=== PATIENT | male | born 1975 | race Caucasian/White ===

== ENCOUNTER → 2016-05-18 | Outpatient (CLI) | payer OTHER ==
--- NOTE | 2016-05-18 11:33 | US ---
EXAMINATION TYPE: US abdomen complete DATE OF EXAM: 05/18/2016 7:24 AM COMPARISON: CT in pacs CLINICAL HISTORY: Intermittent RUQ/RLQ pain x 3 months, occasional N/V. EXAM MEASUREMENTS: Liver Length: 17.1cm Gallbladder Wall: 0.3cm CBD: 0.3cm Spleen: 10.4cm Right Kidney: 10.2 x 4.7 x 5.6cm Left Kidney: 10.7 x 4.8 x 5.4cm TECHNOLOGIST IMPRESSION: Pancreas: visualized portions wnl, body and tail obscured by overlying bowel gas Liver: measures in upper limits of normal at 17.1cm, otherwise appears wnl Gallbladder: wnl Evidence for sonographic Menezes's sign: yes CBD: visualized portions wnl, limited by overlying bowel gas Spleen: visualized portions wnl, limited by rib shadowing Right Kidney: wnl Left Kidney: visualized portions wnl, limited by rib shadowing Upper IVC: wnl Abd Aorta: visualized portions wnl, distal portion obscured by overlying bowel gas The liver is homogenous. The intrahepatic portion of the IVC and proximal abdominal aorta are within normal limits. There is no evidence of cholelithiasis. Common bile duct is unremarkable. The visu alized portions of the pancreas are homogenous. The spleen is unremarkable. Kidneys are symmetric a nd free of hydronephrosis. No renal lesions are seen. IMPRESSION: There are some limitations to the exam. No abnormalities evident. There is a positive son ographic Menezes's sign however. Normal Values: Liver Length: < 16cm wnl, 17-18cm upper limits, >18cm enlarged Spleen Length = < 13cm Renal Length = 9 - 12cm GB Wall: < 0.3cm CBD: < 0.6cm or < 1.0cm post cholecystectomy
== END | disposition home or self-care (01) ==
LOC: RADUSWWP 06:53
PROVIDERS: ATTEND Internal Medicine
DX: R94.8 Abnormal results of function studies of other organs and systems (principal); R10.11 Right upper quadrant pain
CPT/HCPCS: 76700

== ENCOUNTER → 2017-02-20 | Outpatient (CLI) | payer OTHER ==
--- NOTE | 2017-02-20 19:15 | US ---
EXAMINATION TYPE: US venous doppler duplex LE RT DATE OF EXAM: 02/20/2017 5:36 PM COMPARISON: NONE CLINICAL HISTORY: I80.9 Phlebitis R calf. Right calf burning and pain SIDE PERFORMED: Right TECHNIQUE: The lower extremity deep venous system is examined utilizing real time linear array sonog dorys with graded compression, doppler sonography and color-flow sonography. VESSELS IMAGED: External Iliac Vein (EIV) Common Femoral Vein Deep Femoral Vein Greater Saphenous Vein * Femoral Vein Popliteal Vein Small Saphenous Vein * Proximal Calf Veins (* superficial vessels) Grayscale, color doppler, spectral doppler imaging performed of the deep veins of the lower extremiti es. There is normal flow, compressibility, vascular waveforms. IMPRESSION: NO EVIDENCE OF DEEP VENOUS THROMBOSIS, RIGHT LOWER EXTREMITY.
== END | disposition home or self-care (01) ==
LOC: RADUSWWP 17:04
PROVIDERS: ATTEND Orthopaedic Surgery
DX: I80.9 Phlebitis and thrombophlebitis of unspecified site (principal)

== ENCOUNTER 2022-09-29 20:00 | Emergency (ER) | payer OTHER ==
--- NOTE | 2022-09-29 20:23 | ED ---
Extremity Problem HPI - General Chief complaint: Extremity Problem,Nontraumatic Stated complaint: LT ANKLE SWELLING-PAIN Time Seen by Provider: 09/29/22 20:11 Source: patient Mode of arrival: wheelchair Limitations: no limitations - History of Present Illness Initial comments: Patient is a 46-year-old male presenting with chief complaint of left ankle pain. States that the pain as a burning sensation. Patient injured the ankle 6 years ago, no recent injury. States that he has been working long shifts on his feet. No redness, swelling, or discoloration. No fevers or chills. - Related Data Home Medications Medication Instructions Recorded Confirmed busPIRone HCL 15 mg PO DAILY@1800 07/12/16 01/31/17 Omeprazole 20 mg PO DAILY@1800 01/31/17 01/31/17 Previous Rx's Medication Instructions Recorded Acetaminophen-Codeine 300-30mg 1 tab PO Q4H PRN #20 tablet 01/31/17 [Tylenol #3] Ibuprofen [Motrin] 600 mg PO Q8HR PRN #30 tab 01/31/17 Indomethacin [Indocin] 50 mg PO TID 7 Days #21 capsule 09/29/22 Allergies Allergy/AdvReac Type Severity Reaction Status Date / Time red (food color) AdvReac Diarrhea Verified 09/29/22 20:07 Review of Systems ROS Statement: Those systems with pertinent positive or pertinent negative responses have been documented in the HPI. ROS Other: All systems not noted in ROS Statement are negative. Past Medical History Past Medical History: Hypertension, Seizure Disorder Additional Past Medical History / Comment(s): Anxiety History of Any Multi-Drug Resistant Organisms: None Reported Additional Past Surgical History / Comment(s): jaw Past Anesthesia/Blood Transfusion Reactions: No Reported Reaction Past Psychological History: ADD/ADHD, Anxiety Past Alcohol Use History: Occasional Past Drug Use History: Marijuana - Past Family History Father Family Medical History: AFIB Mother Family Medical History: Asthma General Exam Limitations: no limitations General appearance: alert, in no apparent distress Head exam: Present: atraumatic, normocephalic, normal inspection Eye exam: Present: normal appearance, EOMI. Absent: scleral icterus, periorbital swelling Neck exam: Present: normal inspection, full ROM Left Ankle exam: Present: full ROM, tenderness. Absent: swelling, ecchymosis, erythema Neurovascular tendon exam: Present: no vascular compromise Neurological exam: Present: alert, oriented X3, CN II-XII intact Psychiatric exam: Present: normal affect, normal mood Skin exam: Present: warm, dry, intact, normal color. Absent: rash Course Vital Signs 09/29/22 09/29/22 20:05 21:24 Temperature 97.5 F L 98.4 F Pulse Rate 81 76 Respiratory 20 16 Rate Blood Pressure 148/87 152/80 O2 Sat by Pulse 99 98 Oximetry Medical Decision Making - Medical Decision Making Was pt. sent in by a medical professional or institution (, PA, FOOT DOCTOR, urgent care, hospital, or fdc...) When possible be specific @ -No Did you speak to anyone other than the patient for history (EMS, parent, family, police, friend...)? What history was obtained from this source @ -No Did you review nursing and triage notes (agree or disagree)? Why? @ -I reviewed and agree with nursing and triage notes Were old charts reviewed (outside hosp., previous admission, EMS record, old EKG, old radiological studies, urgent care reports/EKG's, fdc records)? Report findings @ -No old charts were reviewed Differential Diagnosis (chest pain, altered mental status, abdominal pain women, abdominal pain men, vaginal bleeding, weakness, fever, dyspnea, syncope, headache, dizziness, GI bleed, back pain, seizure, CVA, palpatations, mental health, musculoskeletal)? @ -Differential Musculoskeletal Muscular strain, contusion, ligament sprain, fracture, arthritis, septic arthritis, bursitis, cellulitis, muscle spasm, nerve compression, DVT, arterial occlusion, herpes zoster, electrolyte abnormality, tumor.... This is not meant to be in all inclusive list EKG interpreted by me (3pts min.). @ -As above X-rays interpreted by me (1pt min.). @ -X-ray unremarkable CT interpreted by me (1pt min.). @ -None done U/S interpreted by me (1pt. min.). @ -None done What testing was considered but not performed or refused? (CT, X-rays, U/S, labs)? Why? @ -None What meds were considered but not given or refused? Why? @ -None Did you discuss the management of the patient with other professionals (professionals i.e. , PA, FOOT DOCTOR, lab, RT, psych nurse, social media strategist, mohel, teacher, hospital chief financial officer, watch caser)? Give summary @ -No Was smoking cessation discussed for >3mins.? @ -No Was critical care preformed (if so, how long)? @ -No Were there social determinants of health that impacted care today? How? (Homelessness, low income, unemployed, alcoholism, drug addiction, transportation, low edu. Level, literacy, decrease access to med. care, longterm, rehab)? @ -No Was there de-escalation of care discussed even if they declined (Discuss DNR or withdrawal of care, Hospice)? DNR status @ -No What co-morbidities impacted this encounter? (DM, HTN, Smoking, COPD, CAD, Cancer, CVA, ARF, Chemo, Hep., AIDS, mental health diagnosis, sleep apnea, morbid obesity)? @ -None Was patient admitted / discharged? Hospital course, mention meds given and route, prescriptions, significant lab abnormalities, going to OR and other pertinent info. @ -Patient is a 46-year-old male presenting with chief complaint of burning pain to the left ankle. No new injury or trauma. Physical examination is positive for tenderness, no erythema or swelling. X-ray unremarkable. Presentation seems consistent with gout. Patient will be treated with indomethacin. Follow-up with PCP. Report back to ER with any new or worsening symptoms. Discussed return parameters and answered all questions. Patient conveyed verbal understanding and agreed to the plan. I discussed this case in detail with my attending Dr. Ignacio Undiagnosed new problem with uncertain prognosis? @ -No Drug Therapy requiring intensive monitoring for toxicity (Heparin, Nitro, Insulin, Cardizem)? @ -No Were any procedures done? @ -No Diagnosis/symptom? @ -gout Acute, or Chronic, or Acute on Chronic? @ -acute Uncomplicated (without systemic symptoms) or Complicated (systemic symptoms)? @ -uncomplicated Side effects of treatment? @ -No Exacerbation, Progression, or Severe Exacerbation? @ -No Poses a threat to life or bodily function? How? (Chest pain, [place], [place], pneumonia, PE, COPD, DKA, ARF, appy, cholecystitis, CVA, Diverticulitis, Homicidal, Suicidal, threat to staff... and all critical care pts) @ -No Disposition Clinical Impression: Gout Disposition: HOME SELF-CARE Condition: Good Instructions (If sedation given, give patient instructions): Low Purine Diet (ED), Gout (ED) Additional Instructions: Follow-up with PCP. Report back to ER with any new or worsening symptoms. Take medication as prescribed. Prescriptions: Indomethacin [Indocin] 50 mg PO TID 7 Days #21 capsule Is patient prescribed a controlled substance at d/c from ED?: No Referrals: None,Stated [Primary Care Provider] - 1-2 days Time of Disposition: 20:53
--- NOTE | 2022-09-29 20:36 | XR ---
EXAMINATION TYPE: XR ankle complete LT DATE OF EXAM: 09/29/2022 COMPARISON: None HISTORY: Pain TECHNIQUE: Three-view left ankle FINDINGS: Ankle mortise is intact. No acute fracture or dislocation is evident. Soft tissues appear n ormal. Follow up exams can be performed 7-10 days from acute trauma for continued pain. IMPRESSION: 1. Unremarkable three-view left ankle
[2022-09-29] MEDS ORDERED: KETOROLAC 15 MG/ML 1 ML VIAL IM STA (20:49)
[2022-09-29 21:27] VITALS: BP 152/80; PULSE 76; RESP 16; TEMP 98.4
== END 2022-09-29 21:26 | disposition home or self-care (01) ==
LOC: EC 20:00
DX: M10.9 Gout, unspecified (principal); I10 Essential (primary) hypertension; F41.9 Anxiety disorder, unspecified; F12.90 Cannabis use, unspecified, uncomplicated; Z79.899 Other long term (current) drug therapy
CPT/HCPCS: 73610; 99283; 96372; J1885

== ENCOUNTER → 2023-12-05 | Outpatient (CLI) | payer OTHER ==
--- NOTE | 2023-12-05 20:09 | US ---
EXAMINATION TYPE: US groin LT DATE OF EXAM: 12/05/2023 COMPARISON: NONE CLINICAL INDICATION: Male, 48 years old with history of [id number] LEFT UNIL INGUINAL HERNIA; lump on left groin that bulges when lifting or walking at work. Pt states it has been there for 3-4 years, but is getting worse TECHNIQUE: Left inguinal canal scanned in area of concern FINDINGS: Hypoechoic area seen in left inguinal canal measuring 3.3cm in area of concern. This area has movement with valsalva. Evaluation with CT could confirm hernia. IMPRESSION: Findings are suspicious for a left inguinal hernia. Recommend CT scan for confirmation.
== END | disposition home or self-care (01) ==
LOC: RADUSWWP 14:39
PROVIDERS: ATTEND Family Medicine
DX: K40.90 Unilateral inguinal hernia, without obstruction or gangrene, not specified as recurrent (principal)

== ENCOUNTER → 2024-02-09 | Outpatient (CLI) | payer OTHER ==
--- NOTE | 2024-02-09 16:12 | CT ---
EXAMINATION TYPE: CT pelvis wo/w con DATE OF EXAM: 02/09/2024 COMPARISON: 12/05/2023 ultrasound HISTORY: Inguinal hernia, groin pain x [address] DLP: 943.1 mGycm Automated exposure control for dose reduction was used. Contrast: Oral contrast. 100 mL Isovue-300 Technique: Axial images 3 mm thick sections. Reconstructed images in the coronal plane. FINDINGS: There is a small left inguinal hernia. At the edge of the opening there is a contrast-filled loop of colon without evidence of obstruction. Mesenteric fat is within the remaining portions of the hernia. Urinary bladder is unremarkable. Prostate is prominent contains calcification. Loops of bowel distend ed with oral contrast appear unremarkable. No suspicious enhancement evident. No acute osseous abnormality evident. IMPRESSION: 1. MESENTERIC FAT-CONTAINING LEFT INGUINAL HERNIA. SOME MINIMAL EXTENSION OF NONE DILATED NONOBSTRUCT ED COLON INTO THE OPENING OF THE LEFT INGUINAL HERNIA MAY BE PRESENT. [facility], , 02/09/2024 4:10 PM
== END | disposition home or self-care (01) ==
LOC: RADCTMAIN 13:01
PROVIDERS: ATTEND Family Medicine
DX: K40.90 Unilateral inguinal hernia, without obstruction or gangrene, not specified as recurrent (principal)
CPT/HCPCS: 72194; Q9967